=== PATIENT | male | born 1965 | race Two or more races ===

== ENCOUNTER 2020-09-14 08:24 | Inpatient (IN) | payer OTHER ==
[~2020-09-14] VITALS: Ht 154.9 cm; Wt 51.3 kg
[2020-09-14] VITALS (15 sets, daily range): BP systolic 103–156; BP diastolic 50–97
[~2020-09-14 08:24] MED LIST: ceFAZolin sod 1 GM in NS 55 ML IVPB ONE
[2020-09-14] MEDS ORDERED: AMLODIPINE BESYL5 MG ORAL (08:43)
[2020-09-14] MEDS ORDERED: ATORVASTATIN CA20 MG ORAL (08:43)
[2020-09-14] MEDS ORDERED: IBUPROFEN600 M1 ORAL (09:04)
--- NOTE | 2020-09-14 10:11 | Pre-Procedure Note/Attestation ---
Pre-Procedure Note/Attestation Complete Prior to Procedure Procedure Narrative: C2-C7 laminectomy and fusion C2-7 Indications for Procedure Pre-Operative Diagnosis: Stenosis and OPLL Attestation I attest that I discussed the nature of the procedure; its benefits; risks and complications; and alternatives (and the risks and benefits of such alternatives), prior to the procedure, with the patient (or the patient's legal major account representative). I attest that, if there was a reasonable possibility of needing a blood transfusion, the patient (or the patient's legal major account representative) was given the [facility] standardized written summary, pursuant to the Mateo Senoia Blood Safety Act ([place] Health and Safety Code # 1645, as amended). I attest that I re-evaluated the patient just prior to the surgery and that there has been no change in the patient's H&P, except as documented below: Gato Dawn MD Sep 14, 2020 10:11
[2020-09-14] MEDS ORDERED: Bacitracin Oint 15gm Tube TOPIC ONE (10:26)
[2020-09-14] MEDS ORDERED: Vancomycin 1gm vial IVPB ONE (10:26)
[2020-09-14] MEDS ORDERED: Thrombin 5000 units spray kit TOPIC ONE (10:27)
[2020-09-14] MEDS ORDERED: Gelatin Sponge,Absorbable Syr TP ONE (10:27)
[2020-09-14] MEDS ORDERED: Gelfoam Size TOPIC ONE (10:28)
[2020-09-14] MEDS ORDERED: Thrombin 5000 units TOPIC ONE (10:28)
[2020-09-14] MEDS ORDERED: Bacitracin 50000 Units Vial ONE (10:28)
[2020-09-14] MEDS ORDERED: Bupivacaine w/Epi 0.25% 50ml vial INJ ONE (10:28)
[2020-09-14] MEDS ORDERED: Atropine Sulfate 0.4mg/ml inj IVP PRN (10:30)
[2020-09-14] MEDS ORDERED: HYDROcodone/Acetamin 5/325 tab ORAL PRN (10:30)
[2020-09-14] MEDS ORDERED: LORazepam Inj 2mg/ml 1ml IV PRN (10:30)
[2020-09-14] MEDS ORDERED: DiphenhydrAMINE 50mg/ml Inj IVP PRN (10:30)
[2020-09-14] MEDS ORDERED: Hydromorphone 0.5mg/0.5ml inj IVP PRN ×2 (10:30→19:45)
[2020-09-14] MEDS ORDERED: oxyCODONE HCL/Acetaminophen 5/325mg ORAL PRN (10:30)
[2020-09-14] MEDS ORDERED: Labetalol 5mg/ml 20ml vial IV PRN (10:30)
[2020-09-14] MEDS ORDERED: Ketorolac 30mg Inj IV PRN ×2 (10:30)
[2020-09-14] MEDS ORDERED: Midazolam 2mg/2ml Inj IVP PRN (10:30)
[2020-09-14] MEDS ORDERED: Metoclopramide 10mg/2ml Inj IVP PRN (10:30)
[2020-09-14] MEDS ORDERED: Acetaminophen (Non formulary) 100 ML IV ONE (10:30)
[2020-09-14] MEDS ORDERED: fentaNYL 100 mcg/2 mL IV PRN (10:30)
[2020-09-14] MEDS ORDERED: Meperidine 25mg/1ml Inj (FOR RIGORS ONLY) IV PRN (10:30)
[2020-09-14] MEDS ORDERED: LR 1000ml 1,000 ML IVLG SCH (10:30)
[2020-09-14] MEDS ORDERED: HYDROcodone/Acetamin 7.5/325 tab ORAL PRN (10:30)
--- NOTE | 2020-09-14 10:32 | Anethesia Preoperative Eval ---
Anesthesia Pre-op PMH/ROS General Date of Evaluation: Sep 14, 2020 Time of Evaluation: 11:02 Anesthesiologist: Ethan ASA Score: ASA 3 Mallampati Score Class I : Soft palate, uvula, fauces, pillars visible Class II: Soft palate, uvula, fauces visible Class III: Soft palate, base of uvula visible Class IV: Only hard plate visible Mallampati Classification: Class III Surgeon: Nereyda Diagnosis: Neck Pain Surgical Procedure: PSF C3-C7 Anesthesia History: none Family History: no anesthesia problems Allergies: Coded Allergies: No Known Allergies (Unverified , 09/08/20) Medications: see eMAR Patient NPO?: Yes Past Medical History Cardiovascular: Reports: HTN, other - HL Other: obesity - Morbid BMI 47 PSxH Narrative: R Shoulder Sx Anesthesia Pre-op Phys. Exam Physician Exam Last Vital Signs Date Time Temp Pulse Resp B/P (MAP) Pulse Ox O2 Delivery O2 Flow Rate FiO2 09/14/20 08:50 98.4 88 20 156/92 (113) 97 09/14/20 08:47 Room Air Constitutional: NAD Neurologic: CN 2-12 intact Cardiovascular: RRR Respiratory: CTA Gastrointestinal: S/NT/ND Airway Exam Mallampati Score: Class III MO: limited ROM: limited Teeth: missing, intact Anesthesia Pre-op A/P Risk Assessment & Plan Assessment: ASA 3 Plan: GA, SED, GlideScope Status Change Before Surgery: No Pre-Antibiotics Dru Grams Ancef IV Given Within 1 Hr of Incision: Yes Time Given: 11:31 Travis Long MD Sep 14, 2020 10:32
--- NOTE | 2020-09-14 10:33 | Immediate Post-Op Evaluation ---
Immediate Post-Op Evalulation Immediate Post-Op Evalulation Procedure: PSF C3-C7 Date of Evaluation: Sep 14, 2020 Time of Evaluation: 16:25 IV Fluids: 1500 LR Blood Products: 0 Estimated Blood Loss: 500 Urinary Output: 200 Blood Pressure Systolic: 110 Blood Pressure Diastolic: 67 Pulse Rate: 66 Respiratory Rate: 16 O2 Sat by Pulse Oximetry: 100 Temperature (Fahrenheit): 97.7 Pain Score (1-10): 2 Nausea: No Vomiting: No Complications 0 Patient Status: awake, reacts, patent, extubated, none Hydration Status: adequate Dru Grams Ancef IV Given Within 1 Hr of Incision: Yes Time Given: 11:31 Travis Long MD Sep 14, 2020 10:33
--- NOTE | 2020-09-14 10:34 | 48 Hour Post Anesthesia Eval ---
Post Anesthesia Evaluation Procedure: PSF C3-C7 Date of Evaluation: Sep 14, 2020 Time of Evaluation: 18:45 Blood Pressure Systolic: 167 0: 89 Pulse Rate: 67 Respiratory Rate: 18 Temperature (Fahrenheit): 98 O2 Sat by Pulse Oximetry: 100 Airway: patent Nausea: No Vomiting: No Pain Intensity: 2 Hydration Status: adequate Cardiopulmonary Status: Stable Mental Status/LOC: patient returned to baseline Follow-up Care/Observations: 0 Post-Anesthesia Complications: 0 Follow-up care needed: N/A Travis Long MD Sep 14, 2020 10:33
[2020-09-14] MEDS ORDERED: Rocuronium Bromide 50mg/5ml Inj IV ONE (10:38)
[2020-09-14] MEDS ORDERED: Lidocaine 1% MPF 10mg/ml 5ml ONE (10:45)
[2020-09-14] MEDS ORDERED: fentaNYL 100 mcg/2 mL IV ONE ×2 (10:48→12:20)
[2020-09-14] MEDS ORDERED: NS 275ml ONE (11:00)
[2020-09-14] MEDS ORDERED: LR 1000ml ONE (11:00)
[2020-09-14] MEDS ORDERED: Neostigmine 1mg/ml 10ml Inj ONE (11:00)
[2020-09-14] MEDS ORDERED: Sterile Water Irrig 1000ml IRRIG ONE (11:00)
[2020-09-14] MEDS ORDERED: propofoL 1,000mg/100ml IV ONE (11:00)
[2020-09-14] MEDS ORDERED: NS Irrig 1000ml IRRIG ONE ×2 (11:08→11:46)
[2020-09-14] MEDS ORDERED: Lidocaine 1% Plain 30 ml INJ ONE ×2 (11:17→14:05)
--- NOTE | 2020-09-14 14:36 | NUR ---
CASE MANAGEMENT:REVIEW 54 YR OLD MALE HERE FOR ELECTIVE SURGERY IS: TO SURGERY FOR: POSTERIOR SPINAL FUSION W/LATERAL MASS SCREW FIXATION C3-C7 WITH LAMINECTOMY C3 - C7 WELL INFERIOR POOL OF C2 : WILL GO TO MED./SURG UNIT POST OP
[2020-09-14] MEDS ORDERED: Glycopyrrolate 0.2mg/ml 1ml Vial ONE (15:20)
--- NOTE | 2020-09-14 15:45 | Brief Operative Note ---
Immediate Post Operative Note Operative Note Pre-op Diagnosis: Stenosis and OPLL Procedure: laminectomy C3-6, Partial C2 and C7. PSF C3-7 Post-op Diagnosis: same as pre-op Findings: consistent w/pre-op dx studies Surgeon: natividad Manager Workers Compensation: javier Stoll pac Anesthesiologist: sean Long Anesthesia: general Specimen: none Complications: none Condition: unstable Fluids: 1500 Estimated Blood Loss: volume - 500 Drains: hemovac Implant(s) used?: Yes - choice spine screws Gato Dawn MD Sep 14, 2020 15:45
--- NOTE | 2020-09-14 18:00 | NUR ---
NURSE NOTES: Received patient from PACU. Patient is alert and oriented x4 Samoan speaking.Oriented patient about unit, demonstrated how to use call light, TV, bed and etc. 1 Hemovac noted with serosanguineous drainage. Epstein 16 fr with yellowish urine. IV on left hand intact. No neurological deficit. Patient is alert and oriented x4. Patient is on pain but able to handle without pain meds @ this time. Will continue to monitor. Ice pack on surgical area. No bleeding from surgical site.. all belongings accounted for. Cell phone @ bedside. Patient has benz of $51.00 @ bedside in patient's wallet. Patient brought home medication amlodipine and atorvastatin, Rn brought the meds to the pharmacy and receipt in the chart. Bed is in lowest position and locked. Call light within reach. Will continue plan of care.
--- NOTE | 2020-09-14 18:30 | NUR ---
NURSE NOTES: Patient was seen by Dr. Jean-Baptiste.
--- NOTE | 2020-09-14 19:01 | Diagnostic Imaging Report ---
INDICATION: Pain, intraoperative TECHNIQUE: Intraoperative imaging Fluoroscopy time: 18.6 seconds Total dose: 0.87981 mGym2 Total number of images: 6 COMPARISON: None FINDINGS: Intraoperative images demonstrate localizer tool, subsequent placement of posterior fusion hardware IMPRESSION: Intraoperative imaging, as described
--- NOTE | 2020-09-14 19:20 | NUR ---
NURSE NOTES: Received report from WINDY Lozoya. AAO x 4, pakistani speaking, on NC 3l. Pt c/o pain 9/[address] Jean-Baptiste at bedside. Epstein in place and draining well with yellow urine. Surgical dressing on neck d/c/i and hemovac attached and serosanguineous drainage noted. Neck brace and I/S bedside. Ice pack applied. Bed locked, lowest position, alarm on, side rails up, call light within reach. Will continue to monitor.
--- NOTE | 2020-09-14 19:29 | Operative Note - Dictated ---
DATE OF OPERATION: 09/14/2020 SURGEON: Gato Dawn MD. MAGISTRATE ASSISTANT: Ramón Stoll PA-C ANESTHESIA: Dr. Travis Long. ANESTHESIA TYPE: General endotracheal anesthesia. PREOPERATIVE DIAGNOSES: 1. Cervical spinal stenosis with myelopathy and OPLL. 2. Spinal stenosis C3 through C7. POSTOPERATIVE DIAGNOSES: 1. Cervical spinal stenosis with myelopathy and OPLL. 2. Spinal stenosis C3 through C7. PROCEDURE: 1. Complete laminectomy C3, C4, C5, C6, and inferior 1/2 laminectomy C2 and superior 1/2 C7. 2. Posterolateral spinal fusion using local autograft bone, C3 through C7. 3. Lateral mass screws segmental fixation using ChoiceSpine C3 through C7. 4. Use of operating microscope. 5. Use of fluoroscopy. 6. Neurodiagnostic monitoring. 7. Application of Casas tongs. ESTIMATED BLOOD LOSS: 500 mL. FLUIDS: 1500. INTRAOPERATIVE FINDINGS: Adequate decompression, stable fixation. INDICATIONS: Patient is a very pleasant gentleman with myelopathic findings secondary to severe spinal cord compression, areas of myelomalacia at or about C4 with findings consistent with OPLL (ossification of posterior longitudinal ligament). Patient was counseled on the need for surgical intervention based on the radiographic abnormality. RISK NOTE: Patient was explained in detail risks, benefits of surgery, but not be limited to those of bleeding, infection, damage to nerves, vessels, tendons, anesthetic risks, allergic reaction, aspiration, possibly , possible malpositioning of hardware, possible pseudoarthrosis, possible spinal cord injury, CSF leak, need for additional surgery were all discussed. Patient understood and wished to proceed. OPERATIVE PROCEDURE IN DETAIL: Patient was taken to the operating suite after general endotracheal anesthesia was obtained using minimal trauma to the cervical spine using a GlideScope. Baseline neurodiagnostic monitoring was obtained. Unfortunately, baseline MEPs could not be obtained due to the patient's cord injury despite having reverse anesthesia. Please note that Epstein catheter was then placed. Casas pins were applied and a tong was applied and the patient was positioned prone atraumatically on a radiolucent table with Casas attachment. The neck was prepped and draped in usual sterile fashion. The midline incision was carried out from C2 through C7 after the skin was infiltrated with Marcaine with epinephrine. A subperiosteal dissection was carried out from the leading edge of C2 through C7. Fluoroscopic visualization confirmed appropriate positioning. At this time, pre-drilling of the lateral mass screw pilot can router holes were performed at C3, C4, C5, C6. At C7, due to the patient's extremely large body habitus, C7 pedicle screws were not placed; however, anatomically, it appeared that the lateral mass was of substantial size enough to accommodate a screw in the lateral mass region. Therefore, pre-drilling of the pilot can router hole for the lateral mass was also achieved. A drill was then used for application of the appropriate size drill hole. At this point, using a high-speed drill, bilateral laminectomy troughs were made at C3, C4, C5, C6. The laminectomy at C3 was performed initially. Once the lamina at C3 was removed, this then allowed for us to remove the C4, C5, C6 lamina en bloc using standard technique as bilateral laminotomy troughs were performed. Care was taken to avoid any damage to the spinal cord as the remnant lamina only had cephalad and distal traction forces. Once the laminectomy was completed, a high-speed drill was used out to drill out the leading edge of the C2 lamina as well as the leading cephalad 1/2 of C7 lamina. Micro curette and micro Kerrison punches were then used to perform a completed laminotomy of the leading edge of C3 and C7. Once satisfied with the decompression, copious irrigation was performed. The appropriate size 12 mm lateral mass screws were then all serially applied at C3 through C7. Decortication of the facet joints was achieved and application of local bone autograft was placed within the facet joints and along the lateral aspect of the facet. At this point, the appropriate size rods were contoured, applied, and locking caps were applied and brought to the appropriate level. Final fluoroscopic images confirmed excellent positioning of C3, C4, C5 screws. Due to the patient's body habitus, C6 and C7 could not be visualized. Postoperative CT scan will be performed. At this point, once meticulous hemostasis was achieved, irrigation was completed. Patient then received 750 mL of vancomycin powder deep to the fascia. A medium-sized Hemovac drain was placed deep to the fascia. Fascia was repaired using #1 Vicryl. Superficial irrigation was then performed. 250 mg of vancomycin powder was then applied dorsal to the fascia. Subcutaneous closure using 2-0 Vicryl was then achieved. Dermabond was applied and a sterile dressing was applied. At this point, patient'evie Casas was detached from the table. Patient was then turned onto his back onto a transfer [facility] bed. Augusto pins were removed. Cervical collar was applied. Patient was subsequently extubated, stable to move both upper and lower extremities with no intraoperative complications. Sponge and needle counts were correct. Neurodiagnostic monitoring remained unchanged throughout the procedure. [facility] Paola Dawn DR: SIL JOB#: [id number] CC:
--- NOTE | 2020-09-14 19:30 | NUR ---
NURSE NOTES: Hemovac output is 55cc and silva 200cc
[2020-09-14] MEDS ORDERED: Hydromorphone 0.5mg/0.5ml inj IVP SCH (19:33)
--- NOTE | 2020-09-14 19:40 | NUR ---
NURSE HAND-OFF: Important Events on Shift:admission post op Patient Status: stable Diet: clear liquid Pending Orders: CT of C spine on 09/15/20 Pending Results/Labs: Pending MD notification: Latest Vital Signs: Temperature 97.8 , Pulse 76 , B/P 122 /79 , Respiratory Rate 20 , O2 SAT 98 , Nasal Cannula, O2 Flow Rate 3.0 . Vital Sign Comment: Latest Maddox Fall Score: 35 Fall Risk: Medium Risk Safety Measures: Call light Within Reach, Bed Alarm Zone 1, Side Rails Side Rails x2, Bed position Low and Locked. Fall Precautions: Patient Fall Education Report given to Talya and endorsed plan of care.
[2020-09-14] MEDS: Tamsulosin 0.4mg cap ORAL SCH (20:09)
[2020-09-14] MEDS: Docusate 100mg cap ORAL SCH (20:09)
[2020-09-14] MEDS: D5 1/2NS 1,000 ML IV SCH (20:09)
[2020-09-14] MEDS: ceFAZolin sod 1 GM in D5W 55 ML IV SCH (20:09)
--- NOTE | 2020-09-14 21:29 | Consultation ---
DATE OF CONSULTATION: 09/14/2020 CONSULTING PHYSICIAN: Allen Jean-Baptiste MD. REFERRING PHYSICIAN: Gato Dawn MD REASON FOR CONSULTATION: Acute pain consult. HISTORY OF PRESENT ILLNESS: Dr. Gato Dawn, Thank you kindly for consulting me to evaluate and render an opinion as to how to proceed in management of the patient's acute postoperative cervical spine pain, status post multiple level posterior cervical spine surgery today. Patient is a 54-year-old gentleman who I saw at the bedside with the nurse after his multilevel cervical spine surgery today. The patient injured his cervical spine in a work-related injury and required multiple level cervical spine surgery today. He complained of severe 10/10 pain postoperatively and you consulted me to help with this patient's postoperative pain control. I saw the patient at the bedside. I performed a detailed history and physical examination. I discussed the case with the hospital pharmacistKarlene along with Orthopedic floor nurse. I spent over 75 minutes in consultation with an additional 30 minutes in medical record review. Multiple records were reviewed including utilization review and surgical authorization by William utilization review authorizing surgery as certified. Further record review include preoperative history and physical by Victor Hugo Ferrera MD 09/09/2020 along with diagnostic testing. Multiple records were reviewed from today's date of surgery at [facility], 09/14/2020 including consent for surgical treatment, consent for anesthesia, consent for blood products, medication administration record, medication reconciliation order form, PACU record, PACU orders, anesthesia record, pre and post anesthesia evaluation record, initial nursing assessment, 24-hour medical surgical flow sheet, guidelines for prophylactic antibiotics, guidelines for DVT prophylaxis, postoperative spine surgery orders and postoperative surgery report by [facility]. PAST MEDICAL HISTORY: 1. Acute postoperative cervical spine pain, status post multiple level posterior cervical spine surgery by Dr. Gato Dawn August 2020. 2. Work-related injury. 3. Hypertension. 4. Pre-diabetes. 5. History of COVID infection July 2020. PAST SURGICAL HISTORY: Left right hand surgery 2008. MEDICATIONS: At home, Norvasc 5 mg daily, Lipitor. FAMILY HISTORY: Noncontributory. ALLERGIES: No known drug allergies. SOCIAL HISTORY: The patient also denies tobacco or marijuana usage. REVIEW OF SYSTEMS: Per attending physician. PHYSICAL EXAMINATION: VITAL SIGNS: Age 54. Vital signs shows pain level 9/10 on the visual analog pain scale. Afebrile, pulse 76, respirations 20, oxygen saturation 98% on supplemental oxygen, blood pressure 122/79, respirations 20. HEENT: Normocephalic and atraumatic. NECK: Significant pain with range of motion, and pain by the posterior neck. Incision dressing appears clean and dry with Hemovac drain holding suction. MUSCULOSKELETAL: Moving all extremities x4. A 5/5 plantar flexion in bilateral 5/5 dorsiflexion, bilateral lower extremities. NEUROLOGIC: A detailed neurologic exam per Dr. Dawn. CHEST: Clear to auscultation. HEART: Regular rate and rhythm. ABDOMEN: Soft. Positive bowel sounds. GENITOURINARY: Shows Epstein catheter in place. DIAGNOSTIC TESTING: Shows 12-lead EKG. Normal sinus rhythm, ventricular rate 86, dated 09/09/2020. Preoperative chest x-ray shows no acute cardiopulmonary disease. Laboratory studies 09/09/2020 shows glucose 88, sodium 141, potassium 4.1, chloride 103, bicarb 29, BUN 14, creatinine 0.9, calcium 9.7. Total protein 9.2. Albumin 4.7. AST 21, ALT 16, alkaline phosphatase 82, total bilirubin 0.4. TSH 2.5, within normal limits. Glycosylated hemoglobin high normal at 6.5. White count 9, hemoglobin 14. Sedimentation rate normal at 10. IMPRESSION: 1. Acute postoperative cervical spine pain, status post multiple level posterior cervical spine surgery by Dr. Gato Dawn August 2020. 2. Work-related injury. 3. Hypertension. 4. Pre-diabetes. 5. History of COVID infection July 2020. TREATMENT RECOMMENDATIONS: I reviewed the operative records and recovery room records. The patient received Dilaudid without any adverse side effects or respiratory depression. I will start this patient with a breakthrough dose of Dilaudid 0.5 mg intravenously now as a catch-up dose and I will continue this dosing every 2 hours p.r.n. for severe breakthrough pain. We will advance the patient's diet as tolerated and if he tolerates oral intake without any nausea symptoms, I would recommend titrating oral hydrocodone 10/325 p.r.n. for moderate pain. Benadryl was already used effectively in recovery room without any adverse side effects or respiratory depression. Therefore, I will continue a dose of Benadryl 25 mg orally every 6 hours p.r.n. for any itching or insomnia complaints. I will restart the patient's Norvasc, but I have changed the dosing to 2.5 mg orally twice a day along with the hold parameter for systolic blood pressure less than 130 mmHg. Tylenol is available as an antipyretic. I have ordered Zofran 4 mg intravenously every 4 hours p.r.n. for nausea and vomiting. In this middle-aged patient, I would empirically add Flomax 0.4 mg at bedtime to help reduce the risk for urinary retention issues once the Epstein catheter is removed. In case of any postoperative sore throat complaints, I have ordered Chloraseptic spray at the bedside with directions 1 spray every [address] Dawn has placed patient on Colace 100 mg b.i.d. to promote bowel regularity and I have ordered p.r.n. dose of milk of magnesia as a rescue laxative. I will empirically place patient on Pepcid 20 mg b.i.d. for GI ulcer prophylaxis and I have also ordered p.r.n. dose of Mylanta 30 mL q.6h. in case of any GERD symptom exacerbation. I have ordered incentive spirometer to encourage good pulmonary toilet. The surgeon has ordered sequential compression pneumatic devices for DVT prophylaxis. We will see how patient progresses with physical therapy training and monitor the output from the indwelling posterior cervical spine drain catheter. Allen Jean-Baptiste M.D. DR: BROOKS JOB#: [id number] CC:
[2020-09-15] VITALS (7 sets, daily range): BP systolic 113–147; BP diastolic 64–84
[2020-09-15] MEDS: HYDROcodone/Acetamin 10/325 tab ORAL PRN ×4 (00:16→18:37)
[2020-09-15] MEDS: ceFAZolin sod 1 GM in D5W 55 ML IV SCH ×2 (04:21→11:39)
[2020-09-15] MEDS: D5 1/2NS 1,000 ML IV SCH ×2 (04:22→16:04)
[2020-09-15 06:08] LABS: BASOPHILS % (AUTO) 0.3 % (0.0-2.0); HEMOGLOBIN 13.3 G/DL (14.2-18.0); LYMPHOCYTES % (AUTO) 14.9 % (20.0-45.0); MEAN CORPUSCULAR VOLUME 92 FL (80-99); MONOCYTES % (AUTO) 7.2 % (1.0-10.0); NEUTROPHILS % (AUTO) 77.6 % (45.0-75.0); PLATELET COUNT 231 K/UL (150-450); RED BLOOD COUNT 4.36 M/UL (4.70-6.10); RED CELL DISTRIBUTION WIDTH 12.7 % (11.6-14.8); WHITE BLOOD COUNT 14.5 K/UL (4.8-10.8)
--- NOTE | 2020-09-15 06:25 | NUR ---
NURSE HAND-OFF: Important Events on Shift:pain, hemovac, silva Patient Status: Diet: [] Pending Orders: [] Pending Results/Labs:[] Pending MD notification:[] Latest Vital Signs: Temperature 97.5 , Pulse 77 , B/P 141 /84 , Respiratory Rate 18 , O2 SAT 99 , Nasal Cannula, O2 Flow Rate 3.0 . Vital Sign Comment: [] Latest Maddox Fall Score: 35 Fall Risk: Medium Risk Safety Measures: Call light Within Reach, Bed Alarm Zone 1, Side Rails Side Rails x2, Bed position Low and Locked. Fall Precautions: Yellow Socks Yellow Gown Door Sign Patient Fall Education Addendum: 09/15/20 at 0722 by TYLER RAMOS RN RN Report given to Diana
--- NOTE | 2020-09-15 07:15 | NUR ---
NURSE NOTES: Report received from Talya TEMPLE, rounds made. Patient resting in left lateral position, in bed. AOx4, calm,Yakut speaking. Posterior cervical dressing CDI. HVAC in place, serosanguineous output in tubing and collection compartment. Neuro checks done, skin warm, wiggles, hand grasps strong, no NT. Bilateral SCDs off. FC patent y/cl urine to gravity, will dc after PT eval. Neck pain 02/05, will medicate as ordered, Will provide ice compress. Will instruct on IS. IVF D5 NS at 100 ml/hr to LH, site asymptomatic. On clear liquids, will advance as tolerated. Call light in reach, bed in lowest position, will continue to monitor. Addendum: 09/15/20 at 1143 by Diana Velazquez RN IVF D5 1/2 at 100 ml/hr
--- NOTE | 2020-09-15 08:50 | NUR ---
CASE MANAGEMENT:REVIEW 09/15/20 SI: POD #1 S/P POSTERIOR SPINAL FUSION W/LATERAL MASS SCREW FIXATION C3-C7 WITH LAMINECTOMY C3 - C7 WELL INFERIOR POOL OF C2 97.5 77 18 141/84 99% ON 3L/NC WBC+14.5 IS: IV ANCEF Q8HRS IVF@100/HR NORVASC PO BID PEPCID PO BID FLOMAX PO QHS : MED/SURG STATUS DCP: FROM HOME PLAN: START CLEAR LIQUID DIET PHYSICAL THERAPY EVAL PENDING
--- NOTE | 2020-09-15 09:30 | NUR ---
PT EVALUATION NOTE Patient seen for initial evaluation and treatment initiated. Patient presents with impaired functional mobility s/p cervical spine surgery. Patient instructed in proper log roll technique for in/OOB, in cervical spine precautions and in use of neck brace when OOB. Patient required min/mod assist for bed mobility and min assist for transfers without an AD. Patient able to ambulate 50 ft with slowed pace, CGA. Patient will benefit from skilled inpatient PT intervention to improve level of functional mobility with cervical precautions including stair training. Anticipate discharge home once medically cleared by MD. Addendum: 09/15/20 at 1236 by EDIE MARCUS PT Amended: Links added.
[2020-09-15] MEDS: Docusate 100mg cap ORAL SCH ×2 (09:46→18:38)
--- NOTE | 2020-09-15 10:00 | NUR ---
NURSE NOTES: Hemovac noted with beige output in a portion of the tubing, Dr. Dawn notified, no further orders. Patient sent to [facility] at 0840, via bed on O2 2LNC, in stable condition, returned at 0900, Dr. Dawn aware of results. O2 removed, reassessed after 20 mins, 97% on RA, instructed on IS, demonstrates correctly, inspires 2000 ml, will continue to monitor.
--- NOTE | 2020-09-15 11:00 | NUR ---
NURSE NOTES: Instructed patient on orders to discontinue FC after PT eval, verbalized understanding. Removed without difficulty. Provided urinal. Assisted patient to chair per patient request, log rolled to side of bed with RN assist, dangled, applied [place] collar, transferred safely to chair. Will continue to monitor.
[2020-09-15] MEDS: Chloraseptic Spray 20mL Bottle ORAL PRN (11:56)
[2020-09-15] MEDS: Milk of Magnesia 30ml Ud ORAL PRN (11:56)
--- NOTE | 2020-09-15 12:02 | NUR ---
NURSE NOTES: Patient had very small, soft BM in bed this AM, flatulence present, attempted to have BM in bathroom at this time,unsuccessful, administered MOM, will continue to monitor. Addendum: 09/15/20 at 1241 by Diana Velazquez RN Abdomen round, firm, distended, hypoactive bowel sounds, no NV. Patient does not want to advance diet at this time, remains on clear liquids.
--- NOTE | 2020-09-15 12:31 | NUR ---
NURSE NOTES: Received call from Dr. Jean-Baptiste, updated on current status, vitals (BP/Norvasc not given this AM), pain/PRN medications, activity/PT eval, FC, diet, hemovac output, patient c/o anxiety, BM (MOM given), no further orders at this time.
--- NOTE | 2020-09-15 13:39 | Pain Management Progress Note ---
Allergies: Coded Allergies: No Known Allergies (Unverified , 09/08/20) Vitals Vital Signs Date Time Temp Pulse Resp B/P (MAP) Pulse Ox O2 Delivery O2 Flow Rate FiO2 09/15/20 09:00 78 129/71 09/15/20 08:00 98.8 78 20 129/71 (90) 99 Medications Current Medications Acetaminophen (Tylenol) 650 mg Q4H PRN ORAL Temp >100.5; Start 09/14/20 at 15:45; Stop 10/14/20 at 15:44 Acetaminophen/ Hydrocodone Bitart ([place] 10/325) 1 tab Q3H PRN ORAL Moderate Pain (Pain Scale 4-6) Last administered on 09/15/20at 11:57; Start 09/14/20 at 19:45; Stop 09/21/20 at 19:44 Al Hydroxide/Mg Hydroxide (Mylanta) 30 ml Q6H PRN ORAL gerd; Start 09/14/20 at 19:45; Stop 10/14/20 at 19:44 Amlodipine Besylate (Norvasc) 2.5 mg BID ORAL ; Start 09/15/20 at 09:00; Stop 10/15/20 at 08:59 Clonidine HCl (Catapres Tab) 0.1 mg Q8H PRN ORAL For High Blood Pressure; Start 09/14/20 at 19:45; Stop 12/13/20 at 19:44 Dextrose/Sodium Chloride 1,000 ml @ 100 mls/hr Q10H IV Last administered on 09/15/20at 04:22; Start 09/14/20 at 20:00; Stop 10/14/20 at 19:59 Diphenhydramine HCl (Benadryl) 25 mg Q6H PRN ORAL Itching / insomnia Last administered on 09/15/20at 00:18; Start 09/14/20 at 19:45; Stop 10/14/20 at 19:44 Docusate Sodium (Colace) 100 mg TWICE A DAY ORAL Last administered on 09/15/20at 09:46; Start 09/14/20 at 21:00; Stop 10/14/20 at 20:59 Famotidine (Pepcid) 20 mg BID ORAL Last administered on 09/15/20at 09:46; Start 09/15/20 at 09:00; Stop 12/14/20 at 08:59 Hydromorphone HCl (Dilaudid) 0.5 mg Q2H PRN IVP Severe Breakthru Pain (>7) Last administered on 09/15/20at 09:47; Start 09/14/20 at 19:45; Stop 09/21/20 at 19:44 Magnesium Hydroxide (Mom) 30 ml DAILYPRN PRN ORAL Constipation Last administered on 09/15/20at 11:56; Start 09/14/20 at 19:45; Stop 10/14/20 at 19:44 Ondansetron HCl (Zofran) 4 mg Q4H PRN IVP Nausea & Vomiting; Start 09/14/20 at 19:45; Stop 10/14/20 at 19:44 Phenol/Menthol (Chloraseptic) 1 spray Q2H PRN ORAL sore throat Last administered on 09/15/20at 11:56; Start 09/14/20 at 19:45; Stop 12/13/20 at 19:44 Tamsulosin HCl (Flomax) 0.4 mg BEDTIME ORAL Last administered on 09/14/20at 20:09; Start 09/14/20 at 21:00; Stop 10/14/20 at 20:59 Laboratory Laboratory Tests 09/15/20 05:00: White Blood Count 14.5H, Red Blood Count 4.36L, Hemoglobin 13.3L, Hematocrit 40.0L, Mean Corpuscular Volume 92, Mean Corpuscular Hemoglobin 30.5, Mean Co rpuscular Hemoglobin Concent 33.3, Red Cell Distribution Width 12.7, Platelet Count 231, Mean Platelet Volume 7.4, Neutrophils (%) (Auto) 77.6H, Lymphocytes (%) (Auto) 14.9L, Monocytes (%) (Auto) 7.2, Eosinophils (%) (Auto) 0.0, Basophils (%) (Auto) 0.3 Plan: Patient seen with nursing team. Discussed with surgeon Dr Dawn. Hemovac drain output 105 cc over the past patternmaker. Ong collar at bedside; in-use sometimes. Pain level 6 - 8 / 10 on the visual-analog pain scale. Continue analgesic plan as ordered; both prn IV dilaudid & prn norco are well- tolerated with moderate analgesic efficacy. Pt does seem to show mild anxiety. No prior history of anxiety or BZD usage preop. I tried to reassure pt that he is progressing well, and would recommend to continue ordered narcotics for anxiolysis, rather than add BZDs at this time. No SOB/CP. VSS. O2 Sat WNL on room air. MAR medication list reviewed. Clear liquid diet tolerated without emesis. Pt may advance ad-eusebio, although he currently prefers to stay with liquids at this time. GI: +BS +flatus +BM Encourage incentive spirometer usage. I demonstrated proper usage at bedside. Encourage advancing ambulation with physical therapy as tolerated. Already out of bed, and voiding urine. SCDs for mechanical prophylaxis against deep venous thrombosis and PEs. #60 [place] 10/325 Rx left for outpatient pain medication usage. Allen Jean-Baptiste MD Sep 15, 2020 13:39
--- NOTE | 2020-09-15 14:40 | Diagnostic Imaging Report ---
Indication: Neck pain Technique: Spiral acquisitions obtained through the cervical spine. No IV contrast utilized. Multiplanar reconstructions were generated. Total dose length product 761 mGycm. CTDIvol(s) 30 mGy. Dose reduction achieved using automated exposure control. Comparison: none Findings: Bony alignment is normal. Vertebral body heights are preserved. Disc spaces are preserved. No prevertebral soft tissue swelling. No acute fracture. No dislocation. Patient is status post recent cervical spine surgery. Laminectomies of C3-C6 and laminotomy of C7 are demonstrated, as is posterior fusion hardware extending from C3 through C7 bilaterally. There is evidence of resection of the superior aspect of the C7 spinous process. Small amount of gas, presumably retained air from the surgical exposure, is seen within the surgical bed. A surgical drain is demonstrated posterior to the spinal canal just to the left of midline the pedicle screws at C3, C4, and C5 appear to be entirely intrapedicular. As C6, the pedicle screws graze the facet joint bilaterally, do not extend into the neural foramina or the foramina transversaria. C7, the right pedicle screw comes close to but probably does not violate the C7 articular surface of the C7-T1 facet. No unusual fluid collections are demonstrated. At C2-3, there is moderate right and severe left neural foraminal stenosis. Posterior osteophyte and/or posterior longitudinal ligament ossification are noted, do not significantly narrow the spinal canal. At C3-4, there is mild narrowing of the right neural foramen. There is some ossification of the posterior longitudinal ligament, but the spinal canal is decompressed posteriorly at this level. There are large anterior osteophytes. At C4-5, there is mild narrowing of the right neural foramen. The spinal canal is decompressed posteriorly. There is some ossification of the posterior longitudinal ligament. There are large anterior osteophytes At C5-6, there are large anterior osteophytes. There is moderate to severe narrowing of the right neural foramen. There is ossification of the posterior longitudinal ligament but the spinal canal is decompressed posteriorly. There are large anterior osteophytes At C6-7, there is mild narrowing of left neural foramen. There is some ossification of the posterior longitudinal ligament that this does not appear to significantly narrow the spinal canal. There are large anterior osteophytes. At C7-T1, no significant disc bulge or protrusion, spinal stenosis, or neural foraminal stenosis. The upper aerodigestive tract and other soft tissue structures are unremarkable Impression: Postsurgical changes, as described. No unusual features No acute bony trauma Degenerative changes, as detailed on a level by level basis above The CT scanner at [facility] is accredited by the [employer] and the scans are performed using protocols designed to limit radiation exposure to as low as reasonably achievable to attain images of sufficient resolution adequate for diagnostic evaluation.
[2020-09-15] MEDS: HYDROmorphone 1mg/ml Carpuject IVP PRN ×3 (14:41→23:32)
--- NOTE | 2020-09-15 16:25 | NUR ---
NURSE NOTES: Patient voided in bathroom with urinal without difficulty x2 since FC discontinued. Posterior neck surgical dressing remains intact (circled small area of light drainage, noted this AM), no BM yet. Patient requesting to be on O2 2LNC, 96-99%, and RA (earlier 97%),no distress/SOB at rest/cough, patient feeling slightly anxious (discussed with Dr. Jean-Baptiste, Dr. Dawn). Will continue to monitor.
--- NOTE | 2020-09-15 18:30 | Orthopedic Spine Progress Note ---
Ortho Spine - Progress Note Subjective Symptoms: c/o post-op neck pain, improved - as compared to pre-op Objective Vital Signs: Last 24 Hour Vital Signs Date Time Temp Pulse Resp B/P (MAP) Pulse Ox O2 Delivery O2 Flow Rate FiO2 09/15/20 18:15 80 147/79 (101) 09/15/20 16:00 98.0 71 20 118/64 (82) 99 09/15/20 12:00 98.3 73 20 131/73 (92) 96 09/15/20 09:00 78 129/71 09/15/20 09:00 Nasal Cannula 2.0 09/15/20 08:00 98.8 78 20 129/71 (90) 99 09/15/20 04:00 97.5 77 18 141/84 (103) 99 09/15/20 00:00 97.9 78 20 120/66 (84) 99 09/14/20 22:00 98.0 69 20 127/68 (87) 97 09/14/20 21:00 Nasal Cannula 3.0 09/14/20 21:00 97.1 77 18 130/77 (94) 97 09/14/20 20:00 97.5 81 18 128/83 (98) 98 09/14/20 19:30 97.9 82 20 125/86 (99) 98 I&O: Intake and Output 09/14/20 09/15/20 19:00 07:00 Intake Total 2300 ml 100 ml Output Total 960 ml 1360 ml Balance 1340 ml -1260 ml IV Total 2300 ml 100 ml Output Urine Total 400 ml 1200 ml Drainage Total 60 ml 160 ml Estimated Blood Loss 500 ml # Voids 1 Wound: clean, intact Drains: hemovac Neuro Status: abnormal - subjuectively stronger than preop- Numbness in L hand, ache B shoulders Assessment Procedure Performed: laminectomy C3-6, Partial C2 and C7. PSF C3-7 Plan Plan: PT, pain management, continue drain Additional Comments: Ct with good position of hardware Gato Dawn MD Sep 15, 2020 18:30
--- NOTE | 2020-09-15 19:57 | NUR ---
NURSE HAND-OFF: Important Events on Shift:Hemovac output 130 ml, PT eval (only was able to tolerate 3 stairs), Surgical dressing small area stained/circled, OOB with ASPEN brace on, FC out, voids well per BRP/urinal, CT Cspine done this AM, Norvasc held (both doses), c/o anxiety (Dr. Jean-Baptiste/Dr. Dawn aware, improved, on O2 2LNC per patient request, sats 97% RA), Medicated with Dilaudid x2, MOM, [place] x2 Patient Status: stable Diet: Clear liquids (patient does not want to be advanced) Pending Orders: none Pending Results/Labs:none Pending MD notification:none Latest Vital Signs: Temperature 98.0 , Pulse , B/P 113 /71 , Respiratory Rate 20 , O2 SAT 99 , Nasal Cannula, O2 Flow Rate 2.0 . Vital Sign Comment: none Latest Maddox Fall Score: 35 Fall Risk: Medium Risk Safety Measures: Call light Within Reach, Bed Alarm Zone 1, Side Rails Side Rails x2, Bed position Low and Locked. Fall Precautions: Yellow Socks Yellow Gown Door Sign Patient Fall Education Report given to Adriana TEMPLE.
--- NOTE | 2020-09-15 19:58 | NUR ---
NURSE NOTES: Received patient in no apparent distress. A&OX4. IV site patent and intact. Surgical dressing noted on posterior neck, dry and intact. Hemovac noted, draining well, serosanguineous drainage noted. Bed in lowest position. Call light within reach. Will continue to monitor.
[2020-09-15] MEDS: Tamsulosin 0.4mg cap ORAL SCH (20:44)
[2020-09-16] VITALS (7 sets, daily range): BP systolic 116–157; BP diastolic 64–87
[2020-09-16] MEDS: D5 1/2NS 1,000 ML IV SCH ×2 (02:01→11:43)
[2020-09-16] MEDS: HYDROmorphone 1mg/ml Carpuject IVP PRN ×6 (02:38→22:30)
--- NOTE | 2020-09-16 05:36 | NUR ---
NURSE NOTES: Dr. Jean-Baptiste at bedside. Dr. Jean-Baptiste requested "give [place] 1 tab now."
[2020-09-16] MEDS: HYDROcodone/Acetamin 10/325 tab ORAL PRN ×3 (05:40→23:41)
--- NOTE | 2020-09-16 05:58 | Pain Management Progress Note ---
Allergies: Coded Allergies: No Known Allergies (Unverified , 09/08/20) Vitals Vital Signs Date Time Temp Pulse Resp B/P (MAP) Pulse Ox O2 Delivery O2 Flow Rate FiO2 09/16/20 04:00 97.7 77 20 120/74 (89) 100 09/16/20 00:00 98.5 78 18 126/64 (84) 100 Medications Current Medications Acetaminophen (Tylenol) 650 mg Q4H PRN ORAL Temp >100.5; Start 09/14/20 at 15:45; Stop 10/14/20 at 15:44 Acetaminophen/ Hydrocodone Bitart ([place] 10/325) 1 tab Q3H PRN ORAL Moderate Pain (Pain Scale 4-6) Last administered on 09/16/20at 05:40; Start 09/14/20 at 19:45; Stop 09/21/20 at 19:44 Al Hydroxide/Mg Hydroxide (Mylanta) 30 ml Q6H PRN ORAL gerd; Start 09/14/20 at 19:45; Stop 10/14/20 at 19:44 Amlodipine Besylate (Norvasc) 2.5 mg BID ORAL ; Start 09/15/20 at 09:00; Stop 10/15/20 at 08:59 Clonidine HCl (Catapres Tab) 0.1 mg Q8H PRN ORAL For High Blood Pressure; Start 09/14/20 at 19:45; Stop 12/13/20 at 19:44 Dextrose/Sodium Chloride 1,000 ml @ 100 mls/hr Q10H IV Last administered on 09/16/20at 02:01; Start 09/14/20 at 20:00; Stop 10/14/20 at 19:59 Diphenhydramine HCl (Benadryl) 25 mg Q6H PRN ORAL Itching / insomnia Last administered on 09/15/20at 00:18; Start 09/14/20 at 19:45; Stop 10/14/20 at 19:44 Docusate Sodium (Colace) 100 mg TWICE A DAY ORAL Last administered on 09/15at 18:38; Start 09/14/20 at 21:00; Stop 10/14/20 at 20:59 Famotidine (Pepcid) 20 mg BID ORAL Last administered on 09/15/20at 18:38; Start 09/15/20 at 09:00; Stop 12/14/20 at 08:59 Hydromorphone HCl (Dilaudid) 0.5 mg Q2H PRN IVP Severe Breakthru Pain (>7) Last administered on 09/16/20at 04:48; Start 09/15/20 at 14:26; Stop 09/22/20 at 14:25 Magnesium Hydroxide (Mom) 30 ml DAILYPRN PRN ORAL Constipation Last administered on 09/15/20at 11:56; Start 09/14/20 at 19:45; Stop 10/14/20 at 19:44 Ondansetron HCl (Zofran) 4 mg Q4H PRN IVP Nausea & Vomiting; Start 09/14/20 at 19:45; Stop 10/14/20 at 19:44 Phenol/Menthol (Chloraseptic) 1 spray Q2H PRN ORAL sore throat Last administered on 09/15/20at 11:56; Start 09/14/20 at 19:45; Stop 12/13/20 at 19:44 Tamsulosin HCl (Flomax) 0.4 mg BEDTIME ORAL Last administered on 09/15/20at 20:44; Start 09/14/20 at 21:00; Stop 10/14/20 at 20:59 Plan: Patient seen with nursing RN Adriana. Discussed with surgeon Dr Dawn. Hemovac drain output 130 cc over the past day-shift. Srgn will continue to monitor output. Pain level 7 / 10 on the visual-analog pain scale. Pain is 'global' and generalized--> headaches, bilateral arms/shoulders, incisional. Difficult to obtain accurate pain-description from patient with such global complaints; pt remains pleasant throughout bedside interview, and doesn't appear to be in acute distress. Continue analgesic plan as ordered; both prn IV dilaudid & prn norco are well- tolerated with moderate analgesic efficacy. Less anxiety the past 24 hours. No prior history of anxiety or BZD usage preop. I would recommend to continue ordered narcotics for anxiolysis, rather than add BZDs at this time. No SOB/CP. VSS. No tachycardia. O2 Sat WNL on room air, but pt insists to request supplemental nasal cannula oxygen, despite complaints that the NC is exacerbating nasal congestion. Tried to explain that NC oxygen is likely worsening his nasal congestion. Will trial maalox for possible GERD symptom exacerbation. MAR medication list reviewed. Diet tolerated without emesis. Pt may advance ad-eusebio. GI: +BS +flatus +BM Encourage incentive spirometer usage. I demonstrated proper usage at bedside. Encourage advancing ambulation with physical therapy as tolerated. Already out of bed, and voiding urine. SCDs recommended for mechanical prophylaxis against deep venous thrombosis and PEs. #60 [place] 10/325 Rx left for outpatient pain medication usage. D/c planning per surgeon. Allen Jean-Baptiste MD Sep 16, 2020 05:58
--- NOTE | 2020-09-16 07:26 | NUR ---
NURSE NOTES: Report received from Adriana RN, rounds made. Patient resting in left lateral position, in bed. 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 Posterior cervical dressing remains unchanged. HVAC in place, serosanguineous output in tubing and collection compartment. Neuro checks done, skin warm, wiggles, hand grasps strong, c/o left index finger/arm pain (Dr. Jean-Baptiste aware, no CP). Bilateral SCDs off. Voids in urinal/BRP. Neck pain 5/10, will medicate as ordered, Will provide ice compress. [place] hard collar at bedside. Will reinforce on IS, still on O2 2LNC. IVF D5 1/2 at 100 ml/hr to LH, site asymptomatic, patient wants IV switched to other hand. On clear liquids, denies NV, instructed patient on advancing diet to assist with having BM, patient agrees, will update order. Call light in reach, bed in lowest position, will continue to monitor.
--- NOTE | 2020-09-16 07:35 | NUR ---
NURSE HAND-OFF: Important Events on Shift: Hemovac output 125ml Patient Status: Diet: Clear liquid Pending Orders: Pending Results/Labs: Pending MD notification: Latest Vital Signs: Temperature 97.7 , Pulse 77 , B/P 120 /74 , Respiratory Rate 20 , O2 SAT 100 , Nasal Cannula, O2 Flow Rate 2.0 . Vital Sign Comment: Latest Maddox Fall Score: 35 Fall Risk: Medium Risk Safety Measures: Call light Within Reach, Bed Alarm Zone 1, Side Rails Side Rails x2, Bed position Low and Locked. Fall Precautions: Yellow Socks Yellow Gown Door Sign Patient Fall Education Report given to Diana TEMPLE.
--- NOTE | 2020-09-16 08:20 | NUR ---
NURSE NOTES: Dr. Dawn updated on patient current status (c/o of left arm/index finger pain), wants IV switched, diet advanced to soft/easy chew, pain 5/10 and dressing remains unchanged at this time (small stained area/circled from yesterday), orders to leave dressing in place as dressing will be changed with hemovac removal, change dressing only if saturated. Will keep original dressing in place at this time.
[2020-09-16] MEDS: Docusate 100mg cap ORAL SCH ×2 (08:25→17:53)
[2020-09-16] MEDS: Milk of Magnesia 30ml Ud ORAL PRN (10:28)
--- NOTE | 2020-09-16 11:45 | NUR ---
NURSE NOTES: Encouraged patient to use IS, and keep O2 off due to causing nasal irritation, verbalized understanding. Will monitor O2 sats. IS at bedside, demonstrates correctly. Ice pack applied to posterior neck. Up to chair with RN, ambulated with PT. No BM yet, administered MOM at 1030.
[2020-09-16] MEDS: Chloraseptic Spray 20mL Bottle ORAL PRN (12:39)
--- NOTE | 2020-09-16 14:17 | NUR ---
CASE MANAGEMENT:REVIEW 09/16/20 SI: POD #12 S/P POSTERIOR SPINAL FUSION W/LATERAL MASS SCREW FIXATION C3-C7 WITH LAMINECTOMY C3 - C7 WELL INFERIOR POOL OF C2 98.7 84 19 116/65 94% ON 2L/NC IS: IVF@100/HR NORVASC PO BID PEPCID PO BID FLOMAX PO QHS COLACE PO BID : MED/SURG STATUS DCP: FROM HOME PLAN: SOFT DIET CHANGE SURGICAL DRESSING ONLY IF SATURATED
--- NOTE | 2020-09-16 14:23 | NUR ---
CASE MANAGEMENT:REVIEW 09/16/20 SI: POD #2 S/P POSTERIOR SPINAL FUSION W/LATERAL MASS SCREW FIXATION C3-C7 WITH LAMINECTOMY C3 - C7 WELL INFERIOR POOL OF C2 98.7 84 19 116/65 94% ON 2L/NC IS: IVF@100/HR NORVASC PO BID PEPCID PO BID FLOMAX PO QHS COLACE PO BID : MED/SURG STATUS DCP: FROM HOME PLAN: SOFT DIET CHANGE SURGICAL DRESSING ONLY IF SATURATED
--- NOTE | 2020-09-16 15:10 | NUR ---
NURSE NOTES: No BM yet. Provided patient with Prune juice at this time.
--- NOTE | 2020-09-16 15:20 | NUR ---
NURSE NOTES: Called patient's , Cynthia at 1430, left message with call back number, had Brenda GOLDBERG translate to patient that message was left for and nurses station number was given to patient as well to relay to his when he speaks to her. Received call from office at 1520 regarding patient complains of congestion and wants to see the doctor/has questions for doctor. Spoke with updated on patient current status, hemovac output, diet, BM/medications given, pain management, orders received for CXR, notify Dr. Roman that patient is on the unit, plans to remove hemovac tomorrow, and he will see patient in one hour. Brenda GOLDBERG translated updated orders with RN at bedside, verbalized understanding. O2 sat assessed on RA at this time, 97%. No distress, respirations even/unlabored, no cough, or SOB noted, resting, calm, sitting in chair.
--- NOTE | 2020-09-16 17:37 | Orthopedic Spine Progress Note ---
Ortho Spine - Progress Note Subjective Symptoms: c/o post-op neck pain, improved - as compared to pre-op, but has numbness L c6 Objective Vital Signs: Last 24 Hour Vital Signs Date Time Temp Pulse Resp B/P (MAP) Pulse Ox O2 Delivery O2 Flow Rate FiO2 09/16/20 12:00 98.7 84 19 116/65 (82) 94 09/16/20 08:25 86 135/87 09/16/20 08:16 Nasal Cannula 2.0 09/16/20 08:00 98.0 86 19 135/87 (103) 99 09/16/20 04:00 97.7 77 20 120/74 (89) 100 09/16/20 00:00 98.5 78 18 126/64 (84) 100 09/15/20 21:00 Nasal Cannula 2.0 09/15/20 20:00 98.7 77 19 130/70 (90) 100 09/15/20 18:15 74 113/71 (85) 09/15/20 18:00 71 113/71 I&O: Intake and Output 09/15/20 09/16/20 19:00 07:00 Intake Total 2400 ml 1200 ml Output Total 1880 ml 1125 ml Balance 520 ml 75 ml Intake Oral 1300 ml IV Total 1100 ml 1200 ml Output Urine Total 1750 ml 1000 ml Drainage Total 130 ml 125 ml # Voids 3 2 # Bowel Movements 2 Wound: clean Drains: hemovac Neuro Status: abnormal - slight imptovement since yesterday Assessment Procedure Performed: laminectomy C3-6, Partial C2 and C7. PSF C3-7 Plan Plan: PT, pain management, continue drain - possible dc in am, discharge plan Gato Dawn MD Sep 16, 2020 17:37
--- NOTE | 2020-09-16 18:04 | NUR ---
NURSE NOTES: Dr. Roman notified of patient on 4e unit and had OR on 09/14, orders for EKG, will follow as ordered. Patient updated on new order, translated by Brenda GOLDBERG, verbalized understanding.
[2020-09-16] MEDS ORDERED: D5 1/2NS 1000ml IV ONE ×2 (18:21→18:23)
--- NOTE | 2020-09-16 19:03 | Diagnostic Imaging Report ---
Indication: Chest pain Technique: One view of the chest Comparison: none Findings: The heart is upper limits of normal in size. The lungs and pleural spaces are clear. And there is cervical spine fusion hardware Impression: No acute process
--- NOTE | 2020-09-16 19:32 | NUR ---
NURSE HAND-OFF: Important Events on Shift:EKG not done yet, PCXR done (c/o congestion), on RA, plans for Hemovac removal possible tomorrow 09/17, no BM yet (MOM, Prune Juice, started Soft Diet), Dilaudid 0.5mg IV x2, [place] 10 mg x1, PT (7 stairs done) Patient Status: stable Diet: Soft Easy Chew Pending Orders: EKG Pending Results/Labs:EKG Pending MD notification:none Latest Vital Signs: Temperature 98.0 , Pulse 97 , B/P 157 /85 , Respiratory Rate 18 , O2 SAT 97 , Nasal Cannula, O2 Flow Rate 2.0 . Vital Sign Comment: monitor BP Latest Maddox Fall Score: 35 Fall Risk: Medium Risk Safety Measures: Call light Within Reach, Bed Alarm Zone 1, Side Rails Side Rails x2, Bed position Low and Locked. Fall Precautions: Yellow Socks Yellow Gown Door Sign Patient Fall Education Report given to Ambika TEMPLE.
--- NOTE | 2020-09-16 19:54 | Cardiology Progress Note ---
Assessment/Plan Assessment/Plan [id number] sami speaking staff translated atypcia cp last 1 second nasal congestion labs tyonite with ekg and labs in am nasonex Objective Last 24 Hour Vital Signs Date Time Temp Pulse Resp B/P (MAP) Pulse Ox O2 Delivery O2 Flow Rate FiO2 09/16/20 17:53 97 157/85 09/16/20 17:40 97 157/85 (109) 09/16/20 16:00 98.0 91 18 156/80 (105) 97 09/16/20 12:00 98.7 84 19 116/65 (82) 94 09/16/20 08:25 86 135/87 09/16/20 08:16 Nasal Cannula 2.0 09/16/20 08:00 98.0 86 19 135/87 (103) 99 09/16/20 04:00 97.7 77 20 120/74 (89) 100 09/16/20 00:00 98.5 78 18 126/64 (84) 100 09/15/20 21:00 Nasal Cannula 2.0 09/15/20 20:00 98.7 77 19 130/70 (90) 100 Intake and Output 09/15/20 09/16/20 19:00 07:00 Intake Total 2400 ml 1200 ml Output Total 1880 ml 1125 ml Balance 520 ml 75 ml Intake Oral 1300 ml IV Total 1100 ml 1200 ml Output Urine Total 1750 ml 1000 ml Drainage Total 130 ml 125 ml # Voids 3 2 # Bowel Movements 2 Microbiology Date/Time Source Procedure Growth Status 09/14/20 08:35 Nasal Nares MRSA Culture - Final NO METHICILLIN RESISTANT STAPH AUREUS... Complete Mariusz Roman MD Sep 16, 2020 19:54
[2020-09-16] MEDS: Tamsulosin 0.4mg cap ORAL SCH (20:16)
[2020-09-16] MEDS: Flonase Nasal Inhaler 16gm NASAL SCH (22:31)
--- NOTE | 2020-09-16 22:56 | NUR ---
NURSE NOTES: Patient sitting on chair at bedside, alert and oriented x4, with complaint of severe generalized pain. Will medicate as ordered. Call light in reach. Bed in lowest and lock engaged. Will continue plan of care.
--- NOTE | 2020-09-16 23:14 | Consultation ---
DATE OF CONSULTATION: 09/16/2020 CARDIOLOGY CONSULTATION CONSULTING PHYSICIAN: Mariusz Roman MD REFERRING PHYSICIAN: Gato Dawn MD REASON FOR REFERRAL: Chest pain. HISTORY OF PRESENT ILLNESS: This is a 54-year-old gentleman with history of multiple medical problems. Patient has been admitted to the hospital with myelopathic findings secondary to severe spinal cord compression and he underwent complete laminectomy C3 through C6 and inferior half laminectomy at C2 and superior half at C7. He has been having some sharp pain in the left upper side of the chest that lasts only approximately 1 second. He has been feeling very anxious, especially down and he gets somewhat palpitations as well when he was anxious. He has nasal congestion as well. He does not have any shortness of breath waking up night. Uses 1 pillow. There is no dizziness when he stands up and occasionally has palpitations when he feels anxious. PAST MEDICAL HISTORY: Positive according to notations from Dr. Ferrera who saw the patient in preop consultation , hypertension, prediabetes, and history of COVID early July 2020. PAST SURGICAL SURGERY: Right hand surgery in 2008. FAMILY HISTORY: Father alive at 78. Brother, 6 sisters, all healthy. SOCIAL HISTORY: Patient drinks at least 1 cup of coffee every day. ALLERGIES: No known drug allergies. REVIEW OF SYSTEMS: GASTROINTESTINAL: He has not had a bowel movement. No nausea or vomiting. No diarrhea. GENITOURINARY: No problem on urination. PULMONARY: No coughing. He does have nasal congestion. CONSTITUTIONAL: No fevers or chills or night sweats. NEUROLOGIC: He has been walking around in his room and with physical therapy in the [place]. Does not have to stop because of chest pains or shortness of breath. PHYSICAL EXAMINATION: GENERAL: Shows to be overweight middle-aged gentleman, in no respiratory distress. He has a hard collar in place. The lower part of the left side where the collar hits the chest is where he is indicating that the pain is. LUNGS: Otherwise clear to auscultation and percussion. CARDIAC: Regular rate and rhythm. No heaves, thrills, gallops, or rubs are noted. ABDOMEN: Soft, nontender. Positive bowel sounds. EXTREMITIES: No clubbing, cyanosis. There is trace edema in lower extremities bilaterally. VITAL SIGNS: Blood pressure is 157/85, pulse rate of 97, temperature 98 degrees. LABORATORY VALUES: He has not had any other laboratory work except yesterday white count of 14.5, hemoglobin 13.3, and platelet count 231. His preop EKG was reviewed. He had COVID SARS test that was negative prior to surgery. His blood tests prior to surgery showed creatinine 0.9 and a blood sugar of 81. TSH 2.47. An electrocardiogram was ordered, but I cannot find anywhere in the chart. ASSESSMENT AND PLAN: 1. Atypical chest pain. 2. Nasal congestion. 3. Anxiety. 4. Radiculopathy. 5. History of hyperlipidemia. 6. History of hypertension. 7. Prediabetes. The patient is somewhat of a poor historian. The patient's description of the pain appears to indicate only 1 second. Nothing seem to be exacerbating by walking that he does in the room. No limitations in his activities because of pain. The patient will have an electrocardiogram. Chest x-ray was already ordered that was negative today. He will have some laboratories tonight and an echocardiogram will be ordered tomorrow morning. Cardiac enzymes will be repeated tomorrow as well. I suspect that this is musculoskeletal pain and he has nasal congestion that maybe bothering him at night. Some nasal to be administered to see if the nasal congestion would be helped by that. Mariusz Roman M.D. DR: KATH JOB#: [id number] CC:
[2020-09-17] VITALS: BP 127/83
[2020-09-17] MEDS: HYDROmorphone 1mg/ml Carpuject IVP PRN ×4 (00:45→06:39)
[2020-09-17] MEDS: D5 1/2NS 1,000 ML IV SCH (00:49)
[2020-09-17 04:00] VITALS: BP 136/72
[2020-09-17 07:07] LABS: BASOPHILS % (AUTO) 1.3 % (0.0-2.0); EOSINOPHILS % (AUTO) 3.7 % (0.0-3.0); HEMATOCRIT 35.3 % (42.0-52.0); HEMOGLOBIN 11.7 G/DL (14.2-18.0); LYMPHOCYTES % (AUTO) 28.3 % (20.0-45.0); MEAN CORPUSCULAR VOLUME 92 FL (80-99); MONOCYTES % (AUTO) 7.4 % (1.0-10.0); NEUTROPHILS % (AUTO) 59.3 % (45.0-75.0); PLATELET COUNT 193 K/UL (150-450); RED BLOOD COUNT 3.81 M/UL (4.70-6.10); RED CELL DISTRIBUTION WIDTH 12.4 % (11.6-14.8); WHITE BLOOD COUNT 11.8 K/UL (4.8-10.8)
[2020-09-17 07:26] LABS: ANION GAP 6 mmol/L (5-15); BLOOD UREA NITROGEN 8 mg/dL (7-18); CALCIUM 8.4 MG/DL (8.5-10.1); CARBON DIOXIDE 29 MMOL/L (21-32); CHLORIDE 103 MMOL/L (98-107); CREATININE 0.7 MG/DL (0.55-1.30); POTASSIUM 3.7 MMOL/L (3.5-5.1); SODIUM 138 MMOL/L (136-145)
--- NOTE | 2020-09-17 07:26 | NUR ---
NURSE NOTES: Report received from Ambika TEMPLE, rounds made. Patient resting in chair, with [place] collar on, AOx4, on RA, calm,Jordanian speaking. Posterior cervical dressing remains unchanged. hemovac in place, serosanguineous output in tubing and collection compartment. Neuro checks done, skin warm, wiggles, hand grasps strong. Bilateral SCDs off. Voids in urinal/BRP. Neck pain 7/10, will medicate as ordered, Will provide ice compress. IVF D5 1/2 at 50 ml/hr to , site asymptomatic. On soft diet, tolerating well. Call light in reach, bed in lowest position, will continue to monitor.
--- NOTE | 2020-09-17 07:41 | NUR ---
NURSE HAND-OFF: Important Events on Shift: pain mgt Patient Status: Diet: Pending Orders: Pending Results/Labs: Pending MD notification: Latest Vital Signs: Temperature 98.9 , Pulse 81 , B/P 136 /72 , Respiratory Rate 18 , O2 SAT 96 , Nasal Cannula, O2 Flow Rate 2.0 . Vital Sign Comment: Latest Maddox Fall Score: 35 Fall Risk: Medium Risk Safety Measures: Call light Within Reach, Bed Alarm Zone 1, Side Rails Side Rails x2, Bed position Low and Locked. Fall Precautions: Yellow Socks Yellow Gown Door Sign Patient Fall Education Report given to WINDY Ortiz.
[2020-09-17 08:00] VITALS: BP 144/82
--- NOTE | 2020-09-17 09:27 | NUR ---
CASE MANAGEMENT:REVIEW 09/17/20 SI: POD #3 C/O CHEST PAIN 98.9 81 18 136/72 96% ON 2L/NC WBC+11.8 H/H-11.7/35.3 IS: IVF@50/HR NORVASC PO BID PEPCID PO BID FLONASE BID FLOMAX PO QHS COLACE PO BID IV DILAUDID Q2HRS PRN : MED/SURG STATUS DCP: FROM HOME PLAN: 2DECHO
[2020-09-17] MEDS: Flonase Nasal Inhaler 16gm NASAL SCH ×2 (09:28→18:52)
[2020-09-17] MEDS: Docusate 100mg cap ORAL SCH ×2 (09:28→18:51)
[2020-09-17] MEDS: HYDROcodone/Acetamin 10/325 tab ORAL PRN ×4 (11:09→21:55)
[2020-09-17 12:00] VITALS: BP 153/82
--- NOTE | 2020-09-17 12:45 | NUR ---
NURSE NOTES: Spoke to patient's family regarding current medications, POC, activity, testing (EKG, labs). 2D echo done this AM.
--- NOTE | 2020-09-17 13:56 | Diagnostic Imaging Report ---
Indication: Pain Technique: Grayscale and duplex images of the bilateral lower extremity veins Comparison: Management Findings: Bilaterally, grayscale and duplex images demonstrate no evidence of intraluminal thrombus. Normal phasic Doppler waveforms, demonstrating normal augmentation response and no evidence of valvular insufficiency. Greater saphenous vein(s) and tibial veins are patent. Normal compressibility. Impression: Negative for evidence of lower extremity deep venous thrombosis bilaterally
[2020-09-17 16:00] VITALS: BP 145/79
--- NOTE | 2020-09-17 16:13 | Orthopedic Spine Progress Note ---
Ortho Spine - Progress Note Subjective Symptoms: c/o post-op neck pain, improved - as compared to pre-op Objective Vital Signs: Last 24 Hour Vital Signs Date Time Temp Pulse Resp B/P (MAP) Pulse Ox O2 Delivery O2 Flow Rate FiO2 09/17/20 09:28 95 144/82 09/17/20 08:00 98.0 95 20 144/82 (102) 96 09/17/20 04:00 98.9 81 18 136/72 (93) 96 09/17/20 00:00 99.4 89 20 127/83 (98) 95 09/16/20 21:00 Nasal Cannula 2.0 09/16/20 20:00 99.4 96 18 150/86 (107) 97 09/16/20 17:53 97 157/85 09/16/20 17:40 97 157/85 (109) I&O: Intake and Output 09/16/20 09/17/20 19:00 07:00 Intake Total 2020 ml 500 ml Output Total 1955 ml 2305 ml Balance 65 ml -1805 ml Intake Oral 920 ml IV Total 1100 ml 500 ml Output Urine Total 1875 ml 2200 ml Drainage Total 80 ml 105 ml # Voids 6 5 Wound: clean Neuro Status: abnormal - Pain in L c6 Assessment Procedure Performed: laminectomy C3-6, Partial C2 and C7. PSF C3-7 Plan Plan: PT, pain management, discharge plan Gato Dawn MD Sep 17, 2020 16:13
--- NOTE | 2020-09-17 16:45 | NUR ---
NURSE NOTES: Dr. Dawn at bedside, hemovac discontinued (80 ml out), new dressing, 4x4 with tegederm applied by Dr. Dawn. RX faxed to [facility] pharmacy at [phone], pharmacy notified RN that they are out of stock. Patient's picked up RX to take to their pharmacy, however, they are unable to pay for it and patient reports he has workers comp, Dr. Dawn notified.
--- NOTE | 2020-09-17 18:54 | Cardiology Progress Note ---
Assessment/Plan Assessment/Plan 1. Atypical chest pain. 2. Nasal congestion. 3. Anxiety. 4. Radiculopathy. 5. History of hyperlipidemia. 6. History of hypertension. 7. Prediabetes. echo prelim neg duplex neg ekg neg trop neg bs elevated dc dextrose in ivf ambulate dc planing when ok with dr adam he already feels better Subjective Cardiovascular: Denies: chest pain, lightheadedness, palpitations Respiratory: Denies: shortness of breath Gastrointestinal/Abdominal: Denies: abdominal pain Genitourinary: Denies: burning Objective Last 24 Hour Vital Signs Date Time Temp Pulse Resp B/P (MAP) Pulse Ox O2 Delivery O2 Flow Rate FiO2 09/17/20 09:28 95 144/82 09/17/20 08:00 98.0 95 20 144/82 (102) 96 09/17/20 04:00 98.9 81 18 136/72 (93) 96 09/17/20 00:00 99.4 89 20 127/83 (98) 95 09/16/20 21:00 Nasal Cannula 2.0 09/16/20 20:00 99.4 96 18 150/86 (107) 97 General Appearance: no apparent distress, alert, obese Cardiovascular: normal rate Respiratory/Chest: lungs clear Abdomen: normal bowel sounds, non tender, soft Extremities: no swelling Intake and Output 09/16/20 09/17/20 19:00 07:00 Intake Total 2020 ml 500 ml Output Total 1955 ml 2305 ml Balance 65 ml -1805 ml Intake Oral 920 ml IV Total 1100 ml 500 ml Output Urine Total 1875 ml 2200 ml Drainage Total 80 ml 105 ml # Voids 6 5 Laboratory Tests Test 09/17/20 05:15 White Blood Count 11.8 K/UL (4.8-10.8) H Red Blood Count 3.81 M/UL (4.70-6.10) L Hemoglobin 11.7 G/DL (14.2-18.0) L Hematocrit 35.3 % (42.0-52.0) L Mean Corpuscular Volume 92 FL (80-99) Mean Corpuscular Hemoglobin 30.8 PG (27.0-31.0) Mean Corpuscular Hemoglobin Concent 33.3 G/DL (32.0-36.0) Red Cell Distribution Width 12.4 % (11.6-14.8) Platelet Count 193 K/UL (150-450) Mean Platelet Volume 7.2 FL (6.5-10.1) Neutrophils (%) (Auto) 59.3 % (45.0-75.0) Lymphocytes (%) (Auto) 28.3 % (20.0-45.0) Monocytes (%) (Auto) 7.4 % (1.0-10.0) Eosinophils (%) (Auto) 3.7 % (0.0-3.0) H Basophils (%) (Auto) 1.3 % (0.0-2.0) Sodium Level 138 MMOL/L (136-145) Potassium Level 3.7 MMOL/L (3.5-5.1) Chloride Level 103 MMOL/L (98-107) Carbon Dioxide Level 29 MMOL/L (21-32) Anion Gap 6 mmol/L (5-15) Blood Urea Nitrogen 8 mg/dL (7-18) Creatinine 0.7 MG/DL (0.55-1.30) Estimat Glomerular Filtration Rate > 60 mL/min (>60) Glucose Level 134 MG/DL (74-106) H Calcium Level 8.4 MG/DL (8.5-10.1) L Troponin I 0.003 ng/mL (0.000-0.056) Mariusz Roman MD Sep 17, 2020 18:54
--- NOTE | 2020-09-17 19:30 | NUR ---
NURSE NOTES: Dr. Dawn updated that patient states (with internet manager present), that he does not have any pain medication at home, we are not discharging patient home and that we have case management order in for discharge planning to assist with this workers comp case.
--- NOTE | 2020-09-17 19:35 | NUR ---
NURSE NOTES: Patient was ambulating on the hallway and was asking if he is going to be discharged tonight. 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 Patient verbalized understanding.
[2020-09-17 20:00] VITALS: BP 143/86
[2020-09-17] MEDS: Tamsulosin 0.4mg cap ORAL SCH (20:03)
[2020-09-18] VITALS: BP 126/63
[2020-09-18] MEDS: HYDROcodone/Acetamin 10/325 tab ORAL PRN ×4 (02:17→12:38)
[2020-09-18 04:00] VITALS: BP 119/65
--- NOTE | 2020-09-18 07:01 | NUR ---
NURSE HAND-OFF: Important Events on Shift: pain mgt Patient Status: Diet: Pending Orders: Pending Results/Labs: Pending MD notification: Latest Vital Signs: Temperature 98.1 , Pulse 79 , B/P 119 /65 , Respiratory Rate 20 , O2 SAT 96 , Nasal Cannula, O2 Flow Rate 2.0 . Vital Sign Comment: Latest Maddox Fall Score: 35 Fall Risk: Medium Risk Safety Measures: Call light Within Reach, Bed Alarm Zone 1, Side Rails Side Rails x2, Bed position Low and Locked. Fall Precautions: Yellow Socks Yellow Gown Door Sign Patient Fall Education Report given to WINDY Ureña.
[2020-09-18 07:04] LABS: ANION GAP 7 mmol/L (5-15); BLOOD UREA NITROGEN 8 mg/dL (7-18); CALCIUM 8.6 MG/DL (8.5-10.1); CARBON DIOXIDE 28 MMOL/L (21-32); CHLORIDE 104 MMOL/L (98-107); CREATININE 0.7 MG/DL (0.55-1.30); POTASSIUM 3.7 MMOL/L (3.5-5.1); SODIUM 139 MMOL/L (136-145)
--- NOTE | 2020-09-18 07:44 | NUR ---
DISCHARGE PLANNING PHYSICIAN NEEDS TO PROVIDE PATIENT WITH TRIPLICATE PRESCRIPTION FOR PAIN MEDICATION. 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
[2020-09-18 08:00] VITALS: BP 134/78
[2020-09-18] MEDS: Flonase Nasal Inhaler 16gm NASAL SCH (09:22)
[2020-09-18] MEDS: Docusate 100mg cap ORAL SCH (09:22)
--- NOTE | 2020-09-18 11:51 | NUR ---
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
[2020-09-18 12:00] VITALS: BP 139/78
--- NOTE | 2020-09-18 13:06 | Cardiology Progress Note ---
Assessment/Plan Assessment/Plan 1. Atypical chest pain. 2. Nasal congestion. 3. Anxiety. 4. Radiculopathy. 5. History of hyperlipidemia. 6. History of hypertension. 7. Prediabetes. echo prelim neg duplex neg ekg neg trop neg bs elevated dc dextrose in ivf ambulate dc planing when ok with dr adam he already feels better dextrose dcd yest Objective Last 24 Hour Vital Signs Date Time Temp Pulse Resp B/P (MAP) Pulse Ox O2 Delivery O2 Flow Rate FiO2 09/18/20 12:00 97.5 80 18 139/78 (98) 97 09/18/20 09:53 98.2 09/18/20 09:22 85 134/78 09/18/20 09:00 Room Air 09/18/20 08:00 98.2 85 18 134/78 (96) 95 09/18/20 04:00 98.1 79 20 119/65 (83) 96 09/18/20 00:00 98.3 77 20 126/63 (84) 96 09/17/20 21:00 Room Air 09/17/20 20:00 97.8 93 20 143/86 (105) 94 09/17/20 18:52 101 145/79 09/17/20 16:00 98.1 101 20 145/79 (101) 96 General Appearance: no apparent distress, alert, obese Cardiovascular: normal rate Respiratory/Chest: lungs clear Abdomen: normal bowel sounds, non tender, soft Extremities: no swelling Intake and Output 09/17/20 09/18/20 19:00 07:00 Intake Total 1270 ml 700 ml Output Total 2230 ml 2350 ml Balance -960 ml -1650 ml Intake Oral 720 ml 600 ml IV Total 550 ml 100 ml Output Urine Total 2150 ml 2350 ml Drainage Total 80 ml # Bowel Movements 4 Laboratory Tests Test 09/18/20 05:40 Sodium Level 139 MMOL/L (136-145) Potassium Level 3.7 MMOL/L (3.5-5.1) Chloride Level 104 MMOL/L (98-107) Carbon Dioxide Level 28 MMOL/L (21-32) Anion Gap 7 mmol/L (5-15) Blood Urea Nitrogen 8 mg/dL (7-18) Creatinine 0.7 MG/DL (0.55-1.30) Estimat Glomerular Filtration Rate > 60 mL/min (>60) Glucose Level 117 MG/DL (74-106) H Calcium Level 8.6 MG/DL (8.5-10.1) Mariusz Roman MD Sep 18, 2020 13:06
--- NOTE | 2020-09-18 13:12 | Cardiology Progress Note ---
Assessment/Plan Assessment/Plan 1. Atypical chest pain. 2. Nasal congestion. 3. Anxiety. 4. Radiculopathy. 5. History of hyperlipidemia. 6. History of hypertension. 7. Prediabetes. echo prelim neg duplex neg ekg neg trop neg labs noted ambulate dc planing when ok with dr adam he already feels better dextrose dcd yest walking to br on his won eating and walking in the halls had bm Subjective Cardiovascular: Denies: chest pain, lightheadedness Respiratory: Denies: shortness of breath Gastrointestinal/Abdominal: Denies: abdominal pain Genitourinary: Denies: burning Subjective ate has pain in the nec; pos top Objective Last 24 Hour Vital Signs Date Time Temp Pulse Resp B/P (MAP) Pulse Ox O2 Delivery O2 Flow Rate FiO2 09/18/20 12:00 97.5 80 18 139/78 (98) 97 09/18/20 09:53 98.2 09/18/20 09:22 85 134/78 09/18/20 09:00 Room Air 09/18/20 08:00 98.2 85 18 134/78 (96) 95 09/18/20 04:00 98.1 79 20 119/65 (83) 96 09/18/20 00:00 98.3 77 20 126/63 (84) 96 09/17/20 21:00 Room Air 09/17/20 20:00 97.8 93 20 143/86 (105) 94 09/17/20 18:52 101 145/79 09/17/20 16:00 98.1 101 20 145/79 (101) 96 General Appearance: no apparent distress, alert, obese Neck: no JVD Cardiovascular: normal rate Respiratory/Chest: lungs clear Abdomen: normal bowel sounds, non tender, soft Extremities: no swelling Intake and Output 09/17/20 09/18/20 19:00 07:00 Intake Total 1270 ml 700 ml Output Total 2230 ml 2350 ml Balance -960 ml -1650 ml Intake Oral 720 ml 600 ml IV Total 550 ml 100 ml Output Urine Total 2150 ml 2350 ml Drainage Total 80 ml # Bowel Movements 4 Laboratory Tests Test 09/18/20 05:40 Sodium Level 139 MMOL/L (136-145) Potassium Level 3.7 MMOL/L (3.5-5.1) Chloride Level 104 MMOL/L (98-107) Carbon Dioxide Level 28 MMOL/L (21-32) Anion Gap 7 mmol/L (5-15) Blood Urea Nitrogen 8 mg/dL (7-18) Creatinine 0.7 MG/DL (0.55-1.30) Estimat Glomerular Filtration Rate > 60 mL/min (>60) Glucose Level 117 MG/DL (74-106) H Calcium Level 8.6 MG/DL (8.5-10.1) Mariusz Roman MD Sep 18, 2020 13:12
--- NOTE | 2020-09-18 15:15 | NUR ---
NURSE NOTES: Pt in stable condition. Afebrile and no drainage from surgical wound. Provided discharge instructions. Translated by daughter. Pt verbalized understanding. Home meds returned to patient. All belongings were accounted for. IV and ID band removed. Pt was escorted to down stair by nurse via W/C and picked up by .
--- NOTE | 2020-09-21 14:44 | Discharge Summary ---
Discharge Summary Hospital Course Date of Admission Sep 14, 2020 at 08:24 Date of Discharge Sep 18, 2020 at 15:13 Admitting Diagnosis Cervical spinal stenosis with myelopathy . Spinal stenosis C3 through C7. Reason for Hospitalization: Elective surgery HPI Blake Cisneros is a 54 year old male who was admitted on Sep 14, 2020 at 08:24 for cervical spinal stenosis with myelopathy . Patient was admitted for elective surgery Consultations Dr Roman- IM/cardio Dr. Jean-Baptiste - pain specialist Procedures s/p 09/14/[address] Dawn 1. Complete laminectomy C3, C4, C5, C6, and inferior 1/2 laminectomy C2 and superior 1/2 C7. 2. Posterolateral spinal fusion using local autograft bone, C3 through C7. 3. Lateral mass screws segmental fixation using [employer]ine C3 through C7. 4. Use of operating microscope. 5. Use of fluoroscopy. 6. Neurodiagnostic monitoring. 7. Application of Casas tongs. 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 ambulated with PT fall precautions maintained; safe for ambulation DVT prophylaxis provided use of incentive spirometry was encouraged while in the bed tolerated diet , IV fluids discontinued GI prophylaxis provided antiemetics were on board as needed home medications continued voided freely bowel regimen instituted patient was stable for discharge discharge instructions provided follow up with surgeon in the office as advised FINAL DIAGNOSES 1. Cervical spinal stenosis with myelopathy and OPLL. 2. Spinal stenosis C3 through C7. 3. s/p laminectomy C3-6, Partial C2 and C7. PSF C3-7 4. Typical chest pain 5. Anxiety 6. Hypertension 7. Hyperlipidemia 8. Possible prediabetes Discharge Medications Continued Medications: Amlodipine Besylate* (Amlodipine Besylate*) 5 Mg Tablet 5 MG ORAL DAILY for Hypertension, TAB Atorvastatin Calcium* (Atorvastatin Calcium*) 20 Mg Tablet 20 MG ORAL BEDTIME for Dyslipidemia, TAB Discontinued Medications: Ibuprofen* (Motrin*) 600 Mg Tablet 600 MG ORAL Q6HR PRN for For Pain Discharge Condition Upon Discharge: stable Discharge Vital Signs Last Vital Signs Date Time Temp Pulse Resp B/P (MAP) Pulse Ox O2 Delivery O2 Flow Rate FiO2 09/18/20 13:08 98.2 09/18/20 12:00 80 18 139/78 (98) 97 09/18/20 09:00 Room Air 09/16/20 21:00 2.0 Discharge Disposition Patient was discharged to Home () Discharge Instructions Discharge Instructions Special Instructions I have been assigned to dictate discharge summary for this account. I was not involved in the patient's management. Gayathri Altamirano NP Sep 21, 2020 14:44
--- NOTE | 2020-09-21 17:39 | Cardiology Report ---
APPROVED REPORT EXAM: Two-dimensional and M-mode echocardiogram with Doppler and color Doppler. INDICATION Chest Pain M-Mode DIMENSIONS IVSd1.3 (0.7-1.1cm)Left Atrium (MM)3.5 (1.6-4.0cm) LVDd4.2 (3.5-5.6cm)Aortic Root3.1 (2.0-3.7cm) PWd1.5 (0.7-1.1cm)Aortic Cusp Exc.1.7 (1.5-2.0cm) IVSs1.9 cmEPSS0.3 (>1.0cm) LVDs1.9 (2.5-4.0cm) PWs2.5 cm <Conclusion> Normal left ventricular chamber size, systolic function and wall motion. Left ventricular ejection fraction estimated to be 65 %. Mild left ventricular hypertrophy. Anterior Echo-free space, may be due to pericardial fat or effusion. All other cardiac chamber sizes are within normal limits. Focal aortic valve sclerosis with adequate cusp excursion. Thickened mitral valve leaflets with normal excursion. Mitral annulus and aortic root calcification. Pulmonic valve not well visualized. Normal tricuspid valve structure. IVC at normal size with slightly physiologic collapse. A color flow and spectral Doppler study was performed and revealed: No aortic regurgitation. Trace mitral regurgitation. Mitral diastolic velocities suggest mild left ventricular diastolic dysfunction (Grade I). Trace tricuspid regurgitation. Tricuspid systolic velocities suggests peak right ventricular systolic pressure of 15 mmHg. Pulmonic regurgitation present.
--- NOTE | 2020-09-21 17:46 | Cardiology Report ---
APPROVED REPORT EKG Measurement Heart [id number] <Conclusion> Normal sinus rhythm Normal ECG
--- NOTE | 2020-09-21 17:47 | Cardiology Report ---
APPROVED REPORT EKG Measurement Heart [id number] [place] [id number] <Conclusion> Normal sinus rhythm Normal ECG
== END 2020-09-18 15:13 | disposition home or self-care (01) | DRG 472 ==
LOC: SDSOVERFLO 08:24 → 4E 19:17
DX: M48.02 Spinal stenosis, cervical region (principal); M50.01 Cervical disc disorder with myelopathy, high cervical region; I10 Essential (primary) hypertension; G89.18 Other acute postprocedural pain; R73.03 Prediabetes; R07.89 Other chest pain; F41.9 Anxiety disorder, unspecified; E78.5 Hyperlipidemia, unspecified; Z86.16 Personal history of COVID-19
CPT/HCPCS: 36415; 71045; 72040; 72125; 76000; 80048; 84484; 85025; 86850; 86900; 86901; 87081; 93005; 93306; 93970; 94003; 94150; J2405; J2710; J7030